=== PATIENT | female | born 1960 | race Caucasian/White ===

== ENCOUNTER → 2016-07-26 | Outpatient (CLI) | payer OTHER, SELFPAY ==
[2016-07-26 11:53] LABS: Cholesterol 236 mg/dL (<200); HDL Cholesterol 59 mg/dL (40-60); Triglycerides 211 mg/dL (<150)
[2016-07-26 14:13] LABS: Hemoglobin A1C 5.4 % (4.2-6.1)
== END | disposition home or self-care (01) ==
LOC: LABWHC1 11:02
PROVIDERS: ATTEND Internal Medicine Clinical Cardiac Electrophysiology
DX: E78.5 Hyperlipidemia, unspecified (principal)
CPT/HCPCS: 36415; 80061; 83036